=== PATIENT | female | born 1985 ===

== ENCOUNTER 2018-05-31 10:51 | Emergency (ER) | payer OTHER ==
[2018-05-31 12:41] LABS: SQUAMOUS EPITHIAL 1 /hpf (0-5); URINE BACTERIA RARE (<OCC); URINE BILIRUBIN NEGATIVE (NEGATIVE); URINE BLOOD 1+ (NEGATIVE); URINE CLARITY Clear (Clear); URINE COLOR Straw (YELLOW); URINE GLUCOSE (UA) NORMAL (Normal); URINE LEUKOCYTE ESTERASE NEG Leu/uL (Negative); URINE PROTEIN NEGATIVE (NEGATIVE); URINE UROBILINOGEN NORMAL mg/dL (0.2-1.0)
[2018-05-31 12:45] LABS: HCG,QUALITATIVE URINE POSITIVE (NEGATIVE)
[2018-05-31 12:46] LABS: BASO % 0.6 % (0.0-2.0); EOS # 0.1 K/uL (0.0-0.7); EOS % 1.6 % (0.0-4.0); HEMOGLOBIN 13.7 g/dL (11.0-16.0); LYMPH # 1.6 K/uL (1.0-4.3); LYMPH % 25.9 % (20.0-40.0); MEAN CELL VOLUME 87.2 fL (81.0-99.0); MEAN CORPUSCULAR HEMOGLOBIN 29.5 pg (27.0-31.0); MEAN CORPUSCULAR HGB CONC 33.9 g/dL (33.0-37.0); MEAN PLATELET VOLUME 9.4 fL (7.2-11.7); MONO # 0.3 K/uL (0.0-0.8); MONO % 4.9 % (0.0-10.0); NEUT # 4.2 K/uL (1.8-7.0); RBC 4.65 Mil/uL (3.80-5.20); RED CELL DISTRIBUTION WIDTH 14.7 % (11.5-14.5); WHITE BLOOD COUNT 6.3 K/uL (4.8-10.8)
[2018-05-31 13:02] LABS: ALB/GLOB RATIO 1.4 (1.0-2.1); ALBUMIN 4.9 g/dL (3.5-5.0); BLOOD UREA NITROGEN 6 mg/dL (7-17); CALCIUM 9.9 mg/dl (8.6-10.4); GFR NON-AFRICAN AMERICAN > 60
[2018-05-31 13:04] LABS: ALT/SGPT 14 U/L (9-52); AST/SGOT 28 U/L (14-36)
--- NOTE | 2018-05-31 13:05 | C.PDOC ---
History Of Present Illness R PELVIC PAIN X 3 DAYS. INTERMIT. LMP 3/5. +NAUSEA NO FEVER PSH NEG EXAM NAD ABD MIN RLQ TEND SOFT NO R/G REMAINDER NEG Chief Complaint (Nursing): Abdominal Pain History Per: Patient History/Exam Limitations: no limitations Onset/Duration Of Symptoms: Days Current Symptoms Are (Timing): Still Present Severity: Moderate Associated Symptoms: Nausea. denies: Fever, Chills, Vomiting Past Medical History Reviewed: Historical Data, Nursing Documentation, Vital Signs Vital Signs: Last Vital Signs Temp 98.1 F 05/31/18 11:00 Pulse 89 05/31/18 11:00 Resp 18 05/31/18 11:00 BP 125/74 05/31/18 11:00 Pulse Ox 100 05/31/18 11:00 - Medical History PMH: No Chronic Diseases Surgical History: No Surg Hx Family History: States: No Known Family Hx - Social History Hx Tobacco Use: No Hx Alcohol Use: No Hx Substance Use: No Review Of Systems Except As Marked, All Systems Reviewed And Found Negative. Constitutional: Negative for: Fever, Chills Gastrointestinal: Positive for: Nausea. Negative for: Vomiting Genitourinary: Positive for: Pelvic Pain Physical Exam - Physical Exam Appears: No Acute Distress Skin: Normal Color, Warm, Dry Head: Atraumatic, Normacephalic Eye(s): bilateral: Normal Inspection Nose: Normal Oral Mucosa: Moist Cardiovascular: Rhythm Regular Respiratory: Normal Breath Sounds, No Rales, No Rhonchi, No Wheezing, Other (NARD) Gastrointestinal/Abdominal: Soft, Tenderness (minimal RLQ tenderness), No Guarding, No Rebound Neurological/Psych: Oriented x3, Normal Speech ED Course And Treatment - Laboratory Results Result Diagrams: 05/31/18 12:40 05/31/18 12:40 Lab Results: Total Bilirubin 1.2 mg/dL (0.2-1.3) 05/31/18 12:40 AST 28 U/L (14-36) 05/31/18 12:40 ALT 14 U/L (9-52) 05/31/18 12:40 Alkaline Phosphatase 53 U/L (38-126) 05/31/18 12:40 Total Protein 8.5 g/dL (6.3-8.3) H 05/31/18 12:40 Albumin 4.9 g/dL (3.5-5.0) 05/31/18 12:40 Globulin 3.6 gm/dL (2.2-3.9) 05/31/18 12:40 Albumin/Globulin Ratio 1.4 (1.0-2.1) 05/31/18 12:40 Urine Color Straw (YELLOW) 05/31/18 12:25 Urine Clarity Clear (Clear) 05/31/18 12:25 Urine pH 6.0 (5.0-8.0) 05/31/18 12:25 Ur Specific [place] 1.004 (1.003-1.030) 05/31/18 12:25 Urine Protein Negative mg/dL (NEGATIVE) 05/31/18 12:25 Urine Glucose (UA) Normal mg/dL (Normal) 05/31/18 12:25 Urine Ketones Negative mg/dL (NEGATIVE) 05/31/18 12:25 Urine Blood 1+ (NEGATIVE) H 05/31/18 12:25 Urine Nitrate Negative (NEGATIVE) 05/31/18 12:25 Urine Bilirubin Negative (NEGATIVE) 05/31/18 12:25 Urine Urobilinogen Normal mg/dL (0.2-1.0) 05/31/18 12:25 Ur Leukocyte Esterase Neg Heladio/uL (Negative) 05/31/18 12:25 Urine WBC (Auto) 1 /hpf (0-5) 05/31/18 12:25 Urine RBC (Auto) 2 /hpf (0-3) 05/31/18 12:25 Ur Squamous Epith Cells 1 /hpf (0-5) 05/31/18 12:25 Urine Bacteria Rare (<OCC) 05/31/18 12:25 Urine HCG, Qual Positive (NEGATIVE) 05/31/18 12:25 Urine HCG, Qual Positive (NEGATIVE) 05/31/18 12:25 O2 Sat by Pulse Oximetry: 100 (RA) Pulse Ox Interpretation: Normal - Physician Consult Information Time Consulting Physician Contacted: 14:56 Physician Contacted: Dorys Llanes Outcome Of Conversation: AWARE OF ER FINDINGS. RECOMMENDS METHERGINE 0.2 MG TID X 3 DAYS, FU OBGYN CLINIC Medical Decision Making Medical Decision Making: Plan: --Labs --UA --HCG, Qual. --US-Transvag. Disposition Counseled Patient/Family Regarding: Studies Performed, Diagnosis, Need For Followup, Rx Given - Disposition Referrals: Saq[facility] [Outside] Disposition: HOME/ ROUTINE Disposition Time: 14:57 Condition: GOOD Additional Instructions: RANDAL MEDICAMENTOS LIZETTE EST PRESCRITO. AUMENTAR LA GAYATRI VAGINAL Y EL CAMBIO DE LA MEDICACIN. SEGUIR EN CLNICA ESTA SEMANA PARA REPETIR LA PRUEBA DE GAYATRI. Prescriptions: Ibuprofen [Motrin] 600 mg PO Q6 #30 tab Methylergonovine [Methergine] 0.2 mg PO TID #9 tab Ondansetron ODT [Zofran ODT] 4 mg PO TID PRN #12 odt PRN Reason: Nausea/Vomiting Instructions: Miscarriage (DC) Forms: [employer] (German) Print Language: FRISIAN - Clinical Impression Clinical Impression: Missed - Scribe Statement The provider has reviewed the documentation as recorded by the Scribe Kayleen Moreno Provider Attestation: All medical record entries made by the Scribe were at my direction and personally dictated by me. I have reviewed the chart and agree that the record accurately reflects my personal performance of the history, physical exam, medical decision making, and the department course for this patient. I have also personally directed, reviewed, and agree with the discharge instructions and disposition.
--- NOTE | 2018-05-31 14:47 | US ---
Date of service: 05/31/2018 PROCEDURE: OB Pelvic Ultrasound HISTORY: R PELVIC PAINR/O ECTOPIC 04/27/2018 COMPARISON: None available. FINDINGS: UTERUS: Gestational sac: 9 mm. Out of range for age determination. pole not yet visualized. No cardiac activity detected. age (Ultrasound estimated): Out of range for age determination. Slime-gestational hemorrhage: None. Date of delivery (Ultrasound estimated) : Out of range for age determination. 2 mm yolk sac visualized. Uterus measures 8.1 x 4.7 x 6.0 cm. Normal in size and appearance. CERVIX: Measures 2.6 cm. Long and closed. No cervical abnormality seen. RIGHT OVARY: Measures 4.2 x 2.5 x 3.4 cm. No mass lesion. Normal flow. 2.4 cm corpus luteum identified. LEFT OVARY: Measures 2.9 x 1.9 x 3.1 cm. No solid mass. Normal flow. 1.9 cm simple cyst identified, presumed physiologic. FREE FLUID: Trace fluid in cul-de-sac. OTHER FINDINGS: None. IMPRESSION: Intrauterine gestational sac with yolk sac. Sac diameter is out of range for age determination. No pole. No cardiac activity detected. No subchorionic hemorrhage. Right ovarian corpus luteum.
[2018-05-31 15:25] VITALS: BP 145/82; PULSE 92; RESP 20; TEMP 98.5; O2SAT 99
== END 2018-05-31 15:25 | disposition home or self-care (01) ==
LOC: C.ER 10:51
DX: O02.1 Missed abortion (principal)

== ENCOUNTER 2018-06-04 14:53 | Outpatient (CLI) | payer OTHER | END 2018-06-04 14:54 | disposition home or self-care (01) | LOC: C.USIC 14:53 | DX: O02.1 Missed abortion (principal) ==